=== PATIENT | male | born 1960 | race Caucasian/White ===

== ENCOUNTER 2024-01-24 06:16 | Day surgery (SDC) | payer OTHER, SELFPAY ==
[2024-01-24] VITALS (8 sets, daily range): BP systolic 128–159; BP diastolic 72–91; BMI 21.1
[2024-01-24] MEDS: TYLENOL 1000 MG PO (07:54)
[2024-01-24] MEDS: NORMOSOL-R 1000 IV (08:08)
== END 2024-01-24 13:49 | disposition home or self-care (01) ==
LOC: SDS 06:16
PROVIDERS: ATTENDING PHYSICIAN Surgery
DX: K40.90 Unilateral inguinal hernia, without obstruction or gangrene, not specified as recurrent (principal)
CPT/HCPCS: 49505; C1781